=== PATIENT | male | born 1995 | race Caucasian/White ===

== ENCOUNTER 2022-12-27 18:34 | Emergency (ER) | payer MEDICAID, SELFPAY ==
[2022-12-27 19:25] VITALS: BP 143/78; PULSE 93; RESP 18; TEMP 36.6; O2SAT 98; BMI 26.6
--- NOTE | 2022-12-27 19:25 | ED.MALEGU ---
HPI - Male Genitourinary General Chief complaint: General Medical Stated complaint: std check Time Seen by Provider: 12/27/22 19:28 Source: patient Mode of arrival: ambulatory Limitations: no limitations History of Present Illness HPI Narrative: 27 yo male healthy here after finding out his sexual partner is positive for chlamydia. He has no symptoms. Related Data Previous Rx's Medication Instructions Recorded doxycycline monohydrate 100 mg 100 mg PO BID #14 caps 12/27/22 capsule Allergies Allergy/AdvReac Type Severity Reaction Status Date / Time No Known Allergies Allergy Verified 12/27/22 19:26 Review of Systems Review of Systems: Yes all other systems are reviewed and are negative Constitutional: Constitutional: Reports no additional constitutional complaints, Denies body ache(s), Denies chills, Denies fever(s), Denies headache(s) and Denies weakness Eyes: Eyes: Reports no additional eye complaints and Denies change in vision ENT: Reports system reviewed and no additional complaints, except as documented, Denies dizziness, Denies headache(s), Denies nasal congestion, Denies nasal discharge and Denies neck pain Cardiovascular: Cardiovascular: Reports no additional cardiovascular complaints, Denies chest pain, Denies leg edema and Denies dyspnea Respiratory: Respiratory: Reports no additional respiratory complaints, Denies cough and Denies dyspnea Gastrointestinal: Gastrointestinal: Reports no additional gastrointestinal complaints, Denies abdominal pain, Denies diarrhea, Denies nausea and Denies vomiting Genitourinary: Genitourinary: Denies urinary incontinence Musculoskeletal: Musculoskeletal: Reports no additional musculoskeletal complaints, Denies back pain, Denies arthralgias, Denies joint swelling, Denies neck pain, Denies numbness and Denies tingling Integumentary/Breasts: Skin/Breast: Reports system reviewed and no additional complaints, except as docu and Denies rash Neurologic: Reports system reviewed and no additional complaints, except as documented, Denies Abnormal speech present, Denies dizziness, Denies headache(s), Denies numbness, Denies tingling and Denies weakness PMFSH Past Medical History Attestation statement: The following information was validated with the patient. Source: old records reviewed and nursing notes reviewed Social History Social History Advance Directives: No Advance Directives Information Provided: No Physical Exam Vital Signs: Vital Signs: Last Vital Signs Temp 97.8 F 12/27/22 19:25 Pulse 93 12/27/22 19:25 Resp 18 12/27/22 19:25 BP 143/78 H 12/27/22 19:25 Pulse Ox 98 12/27/22 19:25 O2 Del Method Room Air 12/27/22 19:25 BMI result Body Mass Index 26.6 Const: General: cooperative, healthy appearing, comfortable and no acute distress Orientation/consciousness: patient oriented x3 Limitations: no limitations HEENT: Head: Yes normal to inspection Ears: hearing grossly normal bilaterally General nose exam: Normal external nose present Face and sinus: Yes normal facial exam Mouth: Normal oral and palatal mucosa present Throat: Yes posterior oropharynx normal Eyes: General: appearance normal, both eyes and all related structures Pupils: Equal, round and reactive pupils present Neck: Neck: Yes normal visual inspection Chest: Chest palpation & inspection: normal inspection of the chest Resp: Effort & Inspection: normal respiratory effort Auscultation: clear to auscultation bilaterally Cardio: Rate: regular rate Rhythm: regular rhythm Peripheral pulses: Peripheral pulses 2+ throughout GI: Inspection: Yes normal to inspection Palpation (GI): Soft to palpation and nontender Auscultation: normal bowel sounds Back/Spine/Pelvis: Thoracic/Lumbar Spine: thoracic and lumbar spine normal to inspection Skin: General skin exam: no rashes or lesions noted Neuro: General: patient oriented x3, no focal motor deficits and normal sensation to monofilament Cranial nerves: Yes Equal, round and reactive pupils present Cognition (Neuro): normal cognition Speech: No Abnormal speech present Gait exam (Neuro): Normal gait present Motor exam (neuro): 5/5 motor strength present throughout Extrem: General: Yes normal to inspection Course Course Course Narrative: This is a rapid medical exam. Deferred HPI, ROS, PE to primary provider. 27 yo male healthy with no symptoms here after finding out his partner has chlamydia. Will send testing for CT NG. VSS Medications Administered Discontinued Medications Generic Name Dose Route Start Last Admin Trade Name Freq PRN Reason Stop Dose Admin Ceftriaxone Sodium 500 mg/ 0 mg 12/27/22 19:28 12/27/22 19:38 Lidocaine HCl 1 ml IM 12/27/22 19:29 350 kit ONCE ONE Administration Medical Decision Making Medical Decision Making [facility] Narrative: 27 yo male healthy here after finding out his sexual partner is positive for chlamydia. He has no symptoms. Will send testing for gonorrhea and chlamydia. Patient will be treated prophylactically with ceftriaxone 500 mg IM and sent home with a course of doxycycline Differential Diagnosis Differential Diagnoses: The differential diagnosis associated with the presentation includes STD Lab Data MDM Lab Attestation statement: I reviewed the patient's lab results. Discharge Plan Discharge Clinical Impression: Concern about STD in male without diagnosis Patient Disposition: Home, Self-Care Instructions: Sexually Transmitted Diseases (ED) Additional Instructions: We tested you for gonorrhea and chlamydia. These results take 1-2 days to come back. We are treating you prophylactically with antibiotics. You did receive an injection of ceftriaxone while you are here in the emergency room and we are sending you home with doxycycline. We will call you if your results are positive. If you are positive please abstain from unprotected sex for 7 days. If you are positive please get retested [facility] once you complete your course of antibiotics. They are located at [address] [place] [address] Prescriptions: New doxycycline monohydrate 100 mg capsule 100 mg PO BID Qty: 14 0RF Referrals: Physician,Unknown J [Physician] - Interventions: ED Discharge Assessment Last Done: 12/27/22 19:44 Discharge Date/Time: 12/27/22 19:45
[2022-12-27] MEDS: cefTRIAXone sodium 500 MG, Lidocaine HCl 1 % MPF 1 ML IM (19:38)
--- NOTE | 2022-12-27 19:44 | PC.NURSE ---
pt medicated per provider order in left deltoid, pt tolerated well. urine sample collected and sent to lab.
[2022-12-28 10:27] LABS: CT PCR DETECTED (Not Detect.); NG PCR NOT DETECTED (Not Detect.)
== END 2022-12-27 19:45 | disposition home or self-care (01) ==
LOC: HO.ED 19:37
PROVIDERS: Nurse Practitioner Family; Emergency Provider Emergency Medicine
DX: Z20.2 Contact with and (suspected) exposure to infections with a predominantly sexual mode of transmission (principal); Z79.899 Other long term (current) drug therapy
CPT/HCPCS: 0353U; 96372; 99282; 99284; J0696